=== PATIENT | female | born 1980 | race Caucasian/White ===

== ENCOUNTER 2016-06-06 05:01 | Inpatient (IN) | payer OTHER ==
--- NOTE | 2016-06-04 11:42 | HP ---
Dayana Landrum : 1980 DATE OF SURGERY: 06/06/2016 PREOPERATIVE DIAGNOSES: 1. Previous section. 2. at term. 3. Undesired future fertility. PLANNED PROCEDURE: Repeat section and bilateral tubal ligation. HISTORY OF PRESENT ILLNESS: Dayana Landrum is a 35-year-old 2, para 1-0-0-1 who has been followed in our practice since approximately 8 weeks gestation. She had an ultrasound in November which predicted an estimated date of confinement of 06/13/2016. She was at approximately 12 weeks and 5 days estimated gestational age. The patient had another ultrasound at 20 weeks gestation which was consistent with the same estimated date of confinement. She is therefore thought to be at term at 39 weeks gestation on 06/06/2016. She is being admitted for elective repeat section. The patient had a long hard miserable labor at 39 weeks with her first child. The induction was done at this time because of gestational diabetes. The baby apparently never came deep into the pelvis and she never got beyond about 6 cm. She ended up having a section. She is choosing not to attempt a trial of labor. That baby weighed 7 pounds 9 ounces and his name is Hitesh. The patient and her are expecting a baby girl with this . They have decided that this will complete their family and they are choosing not to have any more children. The patient has signed a federal consent form for sterilization on 02/05/2016. She does understand that this is permanent and not reversible. She is choosing to proceed with a tubal ligation at the time of this repeat section. This has been relatively uncomplicated. The patient has shown a regular increase in the fundal height. No significant proteinuria. Normal blood pressures throughout the . She has had a total weight gain of 48 pounds. She did have a one hour glucose challenge test of 143. She was able to do a 3 hour test and only the 2 hour result was slightly elevated at 157. The patient therefore is thought to not have gestational diabetes, but she has been trying to eat much more healthy with this . She is trying to avoid unnecessary carbs and high fat foods. She does understand the benefits of a healthy well balanced diet. It is noted that some of this patient's weight gain recently is related to fluid retention particularly in her lower extremities. This baby is thought to be approximately the same size as her last child. It is in a vertex presentation. Patient has had three ultrasounds, these have shown a posterior placenta with no previa. Growth was described at the 60th percentile on March 13. testing has included the verify test which showed chromosomes 46 XX. No abnormalities were seen on ultrasound. The patient was followed for cervical length because she had a LEEP conization after her last . Unfortunately there was no significant cervical shortening or any concern about labor. The patient has received the flu shot and TDAP during this . She is planning to breast feed. She has no particular concerns or requests with the delivery except that she does not want pedro for closure of her incision. See the record for the rest of the details. 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 She has never had any sexually transmitted infections. She does have the prior history of gestational diabetes, but this was well controlled with diet alone in her last . She has a history of depression when she was in her teenage years. 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 Apparently there was a grandfather who had a similar anomaly. She has had a couple of surgeries on that ear to create a new canal and to improve her hearing. FAMILY HISTORY: Negative otherwise. SOCIAL HISTORY: The patient is in a stable mutually monogamous relationship. Her frequently travels to [facility], [place], but does not have any exposure to malaria or Zika virus. He has had all his routine vaccinations. Neither the patient nor her have traveled in the area that is endemic for Zika virus. REVIEW OF SYSTEMS: The patient is having some mild cramping. The baby seems to be sitting lower in her pelvis. She has not had any vaginal bleeding or discharge. She has had more fluid retention in her lower extremities, but minimal fluid retention in her face or upper extremities. She has however been suffering with classic symptoms of carpal tunnel syndrome for the last couple of months. PHYSICAL EXAMINATION: VITAL SIGNS: Blood pressure 118/64, pulse and respiration are normal, weight 198 pounds. HEENT: Normal except for this malformation of her right ear. NECK: Supple. LUNGS: Clear to auscultation bilaterally. No costovertebral angle tenderness. HEART: Regular rate and rhythm. ABDOMEN: Gravid with an estimated weight of 7-1/2 pounds. Baby is in a cephalic lie with the back to the maternal left and anterior. Patient's prior scar is barely visible. heart tones were normal in the 130's. Baby is active. PELVIC: No pelvic exam was performed. EXTREMITIES: Normal except for the peripheral edema. IMPRESSION: Dayana Banda is a healthy 35-year-old having her second child. She is choosing to deliver by repeat section. She is requesting bilateral tubal ligation at the same time. She will be admitted on the morning of 06/06/2016 for this surgery. JOB: [id number]
[2016-06-06] MEDS ORDERED: IV START KIT ONE (05:21)
[2016-06-06] MEDS ORDERED: LACTATED RINGERS 1,000 ML ONE (05:21)
[2016-06-06] MEDS ORDERED: SODIUM CHLORIDE 0.9% FLUSH 10 ML ONE (05:22)
[2016-06-06] MEDS ORDERED: CEFAZOLIN SODIUM 2 GRAM DUPLEX 2 G in Premix (D5W) 50 ml 1 EACH IV PRN (05:23)
[2016-06-06] MEDS ORDERED: LACTATED RINGERS 1,000 ML IV SCH (05:23)
[2016-06-06 06:05] VITALS: BMI 31.8
[2016-06-06 06:08] LABS: HEMATOCRIT 34.8 % (37.0-47.0); HEMOGLOBIN 11.9 gm/l (12.0-16.0); MEAN CELL VOLUME 91.6 fl (81.0-99.0); MEAN CORPUSCULAR HEMOGLOBIN 31.3 pg (27.0-31.0); MEAN CORPUSCULAR HGB CONC 34.2 g/dl (33.0-37.0); RED CELL DISTRIBUTION WIDTH 12.8 % (11.5-14.5)
[2016-06-06] MEDS ORDERED: CEFAZOLIN SODIUM 2 GRAM DUPLEX 50 ML IV ONE (07:06)
[2016-06-06] MEDS ORDERED: MORPHINE SULFATE (DURAMORPH) 1 MG/ML 10ML AMP ONE (07:20)
[2016-06-06] MEDS ORDERED: ONDANSETRON 4 MG/2ML 2 ML VIAL ONE (07:49)
[2016-06-06] MEDS ORDERED: EPHEDRINE SULFATE 50 MG/ML 1ML VIAL ONE (07:49)
[2016-06-06] MEDS ORDERED: SPINAL PROCEDURAL TRAY 1 EACH ONE (07:49)
[2016-06-06] MEDS ORDERED: BUPIVACAINE 0.75% SPINAL AMPUL 2 ML ONE (07:49)
[2016-06-06] MEDS ORDERED: MORPHINE SULFATE 4 MG/ML SYRINGE IV PRN ×2 (08:00)
[2016-06-06] MEDS ORDERED: ONDANSETRON 4 MG/2ML 2 ML VIAL IV PRN ×3 (08:00→09:17)
[2016-06-06] MEDS ORDERED: PROMETHAZINE HCL 12.5 MG in SODIUM CHLORIDE 0.9% 50 ML IV PRN ×4 (08:00)
[2016-06-06] MEDS ORDERED: MORPHINE SULFATE 10 MG/ML SYRINGE IV PRN ×2 (08:00)
[2016-06-06] MEDS ORDERED: NALOXONE HCL 0.4 MG/ML VIAL IV PRN ×2 (08:00)
[2016-06-06] MEDS ORDERED: DIPHENHYDRAMINE HCL 50 MG/1 ML VIAL IV PRN ×3 (08:00→09:17)
[2016-06-06] MEDS ORDERED: PROMETHAZINE HCL 25 MG/ML VIAL IM PRN ×2 (08:00)
[2016-06-06] MEDS ORDERED: HYDROMORPHONE HCL 2 MG/ML SYRINGE IV PRN ×2 (08:00)
[2016-06-06] MEDS ORDERED: EPHEDRINE SULFATE 50 MG/ML 1ML VIAL IV PRN ×2 (08:00)
[2016-06-06] MEDS ORDERED: HYDROMORPHONE HCL 1 MG/ML SYRINGE IV PRN ×2 (08:00)
[2016-06-06] MEDS ORDERED: NALBUPHINE HCL 20 MG/ML AMP IV PRN ×2 (08:00)
[2016-06-06] MEDS ORDERED: FAMOTIDINE 10 MG/ML 2ML VIAL ONE (08:28)
[2016-06-06] MEDS ORDERED: METOCLOPRAMIDE HCL 5 MG/ML 2ML VIAL ONE (08:28)
[2016-06-06] MEDS ORDERED: OXYTOCIN 10 UNITS/ML VIAL ONE (08:32)
[2016-06-06] MEDS ORDERED: KETOROLAC TROMETHAMINE 30 MG/ML 1 ML VIAL ONE (08:35)
--- NOTE | 2016-06-06 09:15 | PCMBPN ---
Brief Post Op Note: Date of Procedure: 06/06/16 Start Time: 0754 Preoperative Diagnosis: 1. Previous c/section 2. at term 3. Undesired fertility. Postoperative Diagnosis: 1. Same Procedure: RCS and BTL Surgeon: Christina Holt Assist:Mariah Bahena Anesthesia: Spinal by Summer Hillman CRNA Findings: well healed, no adhesions Baby girl born at 0804, Apgars 9/9, weight 8lbs 6oz, large round head and chubby cheeks. Anterior fundal placenta. Normal tubes and ovaries Huge adnexal vessels. Condition: good Complications: none IV Fluids: approx 1700 mLs of LR Urine Output: 100 mLs Estimated Blood Loss: 1000 mLs Tourniquet Time: N/A Specimens: N/A Implants: N/A Drains:
[2016-06-06] MEDS ORDERED: MEASLES,MUMPS&RUBELLA VACCINE 0.5 ML VIAL SUB-Q V ONE (09:17)
[2016-06-06] MEDS ORDERED: DIPHENHYDRAMINE HCL 25 MG CAPSULE PO PRN (09:17)
[2016-06-06] MEDS ORDERED: DIPHTH,PERTUSS(ACELL),TET VAC 0.5 ML VIAL IM V ONE (09:17)
[2016-06-06] MEDS ORDERED: KETOROLAC TROMETHAMINE 30 MG/ML 1 ML VIAL IV PRN (09:17)
[2016-06-06] MEDS ORDERED: LANOLIN 50 APPLIC/7G TUBE TP PRN (09:17)
[2016-06-06] MEDS ORDERED: OXYCODONE HCL 5 MG TABLET PO PRN (09:17)
[2016-06-06] MEDS ORDERED: MORPHINE SULFATE 2 MG/ML SYRINGE IV PRN ×2 (09:34→09:55)
[2016-06-06] MEDS: LACTATED RINGERS 1,000 ML IV SCH ×2 (10:09→18:28)
--- NOTE | 2016-06-06 12:14 | OP ---
Dayana Landrum : 1980 DATE OF SURGERY: 06/06/2016 PREOPERATIVE DIAGNOSES: 1. Previous section. 2. at term. 3. Undesired fertility. POSTOPERATIVE DIAGNOSES: 1. Previous section. 2. at term. 3. Undesired fertility. PROCEDURE PERFORMNED: Repeat section and bilateral tubal ligation. SURGEON: Dr. Christina Holt. TOW MOTOR MECHANIC: Holley Whitlock CNM. INSPECTOR MACHINE CUT GLASS: Summer Hillman CRNA. ANESTHESIA: Spinal. ESTIMATED BLOOD LOSS: 1000 mL. FINDINGS: Dayana had well healed suprapubic transverse incision. She had no significant intraperitoneal adhesions. Lower uterine segment was intact. She had a baby girl born at 0804 hours on 06/06/2016. This baby weighed 8 pounds 6 ounces and had scores of 9 at one minute and 9 at five minutes. The placenta was anterior and fundal with no abnormalities. Normal Fallopian tubes and ovaries. PROCEDURE: On the morning of 06/06/2016 after the usual preoperative preparations were completed in the patient's LDR room, Dayana was brought to the operating room and placed on the operating room table in a sitting position. The usual monitoring leads were placed. Spinal anesthesia was then administered without difficulty. The patient was then placed in a supine position with a wedge under the right hip. She was made as comfortable as possible and the spinal anesthesia was allowed to take effect. No clipper prep was necessary. A Moise catheter was placed without difficulty. The abdomen was then prepped and draped for a transverse suprapubic incision. A timeout was performed verifying proper patient, procedure, position, personnel, and equipment. Adequate anesthesia was verified. The baby's father was then invited into the room and the surgery was begun at 0754. A transverse incision was made above the symphysis pubis right over this patient's prior incision which was barely visible. The incision was carried down through the adipose layer with sharp and blunt dissection and using cautery for hemostasis. The fascia was opened in the midline and then this incision was extended laterally with the Angela scissors. The fascia was then mobilized superiorly and inferiorly with sharp and blunt dissection. The muscles were in the midline. The peritoneum was identified and opened vertically. There was a small amount of free fluid in the peritoneal cavity. The visceral peritoneum was opened transversely and the bladder was mobilized inferiorly. A transverse incision was then made in the lower uterine segment with a scalpel. This was carried down carefully through the myometrium until the membranes were exposed. The membranes were then ruptured yielding a large amount of clear fluid. The incision was extended a little bit by gentle traction in a cephalocaudad direction. The baby's head was immediately below the incision and was gently delivered through the incision. This was a bit challenging because the baby had such a large round head. Eventually, it was decided to place the vacuum on the vertex and then the head was gently eased through the incision. The baby's shoulders were then delivered followed by the rest of this cute chunky baby with chubby cheeks. This was a vigorous baby girl who had excellent tone and cry. The cord was allowed to pulsate for nearly a minute then it was clamped and cut and the baby was handed to the waiting pediatric nurse for evaluation. During this time also the baby was shown to her mom and her dad over the drape. Cord blood was obtained. Placenta was then delivered. It was noted to be quite large and extending across the anterior fundal portion of the uterus. All blood clots and debris were removed. The uterus was then exteriorized and it was noted to be rather boggy. The patient was given IV Pitocin and a uterine massage was performed during this time. The uterine incision was closed with a continuous interlocking suture of 1 Chromic. Once the incision was closed the uterine tone improved considerably. Total estimated blood loss up to this point, however, was approximately 1000 mL. A second layer of 1 Chromic was used to imbricate the first suture line and this gave excellent hemostasis. Inspection of the adnexa showed normal healthy Fallopian tube. The adnexal vessels were huge and were decompressed a little bit before doing the tubal ligation. I also spoke directly with Dayana and her about their wishes. They again confirmed that they did not want any more children and wanted us to proceed with the tubal ligation. The right Fallopian tube was visualized in its entire length. The isthmic portion was selected and grasped with a Swanton clamp. The mesentery was open with cautery. Two Abi clamps were placed and this portion of the Fallopian excised with Metzenbaum scissors. Double ties were placed on either cut end and the lumen was cauterized and hemostasis was verified. The exact same procedure was then done on the left Fallopian tube. Both segments of Fallopian tube were sent to pathology for examination. The uterus was carefully placed back within the peritoneal cavity. The patient did have an Ab retractor that had been placed initially on opening the peritoneum. The pelvis and abdomen were well irrigated with warm saline. All blood clots and debris were removed from the posterior and anterior cul-de-sac and from the paracolic gutters. Hemostasis was again verified. Lap, sponge, and instrument counts were reported as correct. The abdomen was closed in layers as follows: peritoneum and muscle were reapproximated in the midline with some 2-0 Vicryl, the fascia was closed with 0 PDS, the adipose layer was closed with some 2-0 Plain suture, and then the skin was reapproximated with 4-0 Monocryl. Patient was cleaned up and Steri-Strips were placed all by bandage. The drapes were then removed and patient was further cleaned up. She was eventually transferred to her bed and taken to her postoperative recovery room in stable condition. JOB: [id number]
[2016-06-06] MEDS ORDERED: KETOROLAC TROMETHAMINE 30 MG/ML 1 ML VIAL IV SCH (16:30)
[2016-06-06] MEDS: DOCUSATE SODIUM 100 MG CAPSULE PO SCH (22:09)
[2016-06-06] MEDS: OXYCODONE/ACETAMINOPHEN 5/325 MG TABLET PO PRN (22:09)
[2016-06-07] MEDS: IBUPROFEN 800 MG TABLET PO PRN ×3 (01:16→17:55)
[2016-06-07] MEDS: LACTATED RINGERS 1,000 ML IV SCH (02:29)
[2016-06-07] MEDS: OXYCODONE/ACETAMINOPHEN 5/325 MG TABLET PO PRN ×4 (02:50→23:29)
[2016-06-07 06:48] LABS: HEMATOCRIT 30.2 % (37.0-47.0); HEMOGLOBIN 9.9 gm/l (12.0-16.0); MEAN CELL VOLUME 95.3 fl (81.0-99.0); MEAN CORPUSCULAR HEMOGLOBIN 31.2 pg (27.0-31.0); MEAN CORPUSCULAR HGB CONC 32.8 g/dl (33.0-37.0); RED CELL DISTRIBUTION WIDTH 13.1 % (11.5-14.5)
[2016-06-07] MEDS ORDERED: PRENATAL VIT/FE FUMARATE/FA 1 TABLET PO SCH (09:00)
[2016-06-07] MEDS ORDERED: FERROUS SULFATE (65 Fe) 325 MG TABLET PO SCH (09:00)
[2016-06-07] MEDS: DOCUSATE SODIUM 100 MG CAPSULE PO SCH ×2 (09:55→20:58)
--- NOTE | 2016-06-07 12:44 | PDOC44 ---
- Subjective Day: 1 (Pt is up and out of bed and caring for both children. ) Pt states pain is less this time; also she is not nearly as depleted because no labor. She got her diaz out as soon as possible, and now wants saline lock out. Bleeding is minimal. Voiding well. Hct is down to 30.2 from 34.8%. Reports Pain Tolerable, Reports , Reports Lochia Light - Objective Temp Pulse Resp BP Pulse Ox 98.7 F 99 16 104/60 98 06/07/16 07:59 06/07/16 07:59 06/07/16 07:59 06/07/16 07:59 06/06/16 14:30 Lab Results 06/07/16 06:30 WBC 7.0 RBC 3.17 L Hgb 9.9 L D Hct 30.2 L Plt Count 135 06/07/16 06:30 MCH 31.2 H MCHC 32.8 L Current Medications Generic Name Dose Route Start Last Admin Trade Name Freq PRN Reason Stop Dose Admin Diphenhydramine HCl 25 - 50 mg 06/06/16 09:17 Benadryl PO Q6H PRN Itching (Mild/Moderate) Diphenhydramine HCl 25 - 50 mg 06/06/16 09:17 Benadryl IV Q6H PRN Itching (Severe) Docusate Sodium 100 mg 06/06/16 21:00 06/07/16 09:55 Colace PO 100 mg BID MARBIN Administration Emollient Ointment 1 applic 06/06/16 09:17 [id number] TP PRN PRN sore nipples Ferrous Sulfate 325 mg 06/07/16 09:00 06/07/16 09:55 Ferrous Sulfate PO 325 mg DAILY MARBIN Administration Promethazine HCl 12.5 mg/ 50.5 mls @ 202 mls/hr 06/06/16 08:00 Sodium Chloride IV Q4H PRN Nausea/Vomiting Ibuprofen 800 mg 06/06/16 09:17 06/07/16 09:55 Motrin PO 800 mg Q8H PRN Administration Pain Multivi/Iron Carb/Fe Sulf/FA/Prenat 1 tab 06/07/16 09:00 06/07/16 09:55 Plus PO 1 tab DAILY MARBIN Administration Ondansetron HCl 4 mg 06/06/16 09:17 06/06/16 15:22 Zofran IV 4 mg Q6H PRN Administration Nausea/Vomiting Oxycodone HCl 5 - 10 mg 06/06/16 09:17 Roxicodone PO Q3H PRN Pain (Severe) Oxycodone/Acetaminophen 1 - 2 tab 06/06/16 09:17 06/07/16 09:55 Percocet 5/325 PO 2 tab Q4H PRN Administration Pain (Moderate) Sodium Chloride 10 ml 06/06/16 09:17 Normal Saline 10ml Flush IV PRN PRN IV Flush Sodium Chloride 10 ml 06/06/16 17:00 06/07/16 09:55 Normal Saline 10ml Flush IV 10 ml Q8HR MARBIN Administration - Physical Exam General: Afebrile Psych/Mental Status: Mood/Affect Appropriate, Bonding Well Neurological: Alert, Normal Gait, Normal Speech Lungs: Clear to Auscultation Bilaterally Cardiovascular: Regular Rate and Rhythm Fundus: Firm Abdomen: Normal Bowel Sounds Skin: Normal Color, Warm, Dry Wound FUR COMBER: Dressing Clean/Dry/Intact - Problems:Assessment/Plan (1) delivery, delivered, current hospitalization Status: Acute Assessment/Plan: Uncomplicated surgery; pt is now recovering well. (2) Sterilization Status: Acute Assessment/Plan: Tubal ligation done at time of C/section. Disposition: Stable, Anticipate DC Home Tomorrow
[2016-06-08] MEDS: IBUPROFEN 800 MG TABLET PO PRN (02:06)
[2016-06-08] MEDS: OXYCODONE/ACETAMINOPHEN 5/325 MG TABLET PO PRN (05:45)
--- NOTE | 2016-06-08 07:27 | PDOC39B ---
Hospital Course: ADMIT DATE: 06/06/16 DISCHARGE DATE: 06/08/16 ADMISSION DIAGNOSES: Previous c/section at term PROCEDURES: RCS and BTL HISTORY OF PRESENT ILLNESS: 35 year old G2 T1 L1 at 39 weeks 0 days presenting for elective repeat c/section. HOSPITAL COURSE: The patient had an uncomplicated surgery with delivery of a baby girl on 06/06/16. Mother and baby have done very well in the period. By day of discharge the patient is ambulating, eating, voiding, and passing flatus without difficulty. Pain is controlled and lochia is appropriate. She is . - Physical Exam Vital Signs: Temp Pulse Resp BP Pulse Ox 98.5 F 86 16 115/67 98 06/08/16 02:00 06/08/16 02:00 06/08/16 02:00 06/08/16 02:00 06/06/16 14:30 General: Afebrile Psych/Mental Status: Mood/Affect Appropriate, Bonding Well Neurological: Alert, Oriented x 4 HEENT: Atraumatic Lungs: Clear to Auscultation Bilaterally Cardiovascular: Regular Rate and Rhythm Fundus: Firm, Below Umbilicus Abdomen: Normal Bowel Sounds Lochia: Light Skin: Normal Color, Warm, Dry Wound: Well Approximated - Discharge Diagnosis (1) delivery, delivered, current hospitalization Status: Acute Assessment/Plan: Uncomplicated surgery; pt is now recovering well. (2) Sterilization Status: Acute Assessment/Plan: Tubal ligation done at time of C/section. - Discharge Plan Condition: Good Disposition: Home Prescriptions: Docusate Sodium [COLACE 100 MG CAPSULE (SHF)] 100 mg PO BID #60 capsule Ibuprofen [IBUPROFEN 800 MG TABLET (SHF)] 800 mg PO Q8H PRN #100 tablet PRN Reason: Pain Oxycodone HCl/Acetaminophen [PERCOCET 5/325 MG TABLET (SHF)] 1 - 2 tab PO Q4H PRN #30 tablet PRN Reason: Pain (Moderate) Follow-Up: Christina Holt MD [Primary Care Provider] - In 2 weeks
[2016-06-08 07:54] VITALS: BP 128/69
--- NOTE | 2016-06-10 15:22 | SURGPATH ---
[facility] [address] [place] [id number] Patient Name: CAPRICE GRANADO MR#: [id number] : 1980 Gender: F Specimen #: [id number] Collected: 06/06/2016 Received: 06/09/2016 Reported: 06/10/2016 Submitting Phys: ABEL GARLAND Copy To Phys: RICARDO KELLER [facility] Clinical History / Pre-Operative Diagnosis: NONE PROVIDED Specimen Source / Surgical Procedure Performed: SEGMENT OF FALLOPIAN TUBE, RIGHT AND LEFT (STITCH ON RIGHT)-REPEAT , BILATERAL TUBAL LIGATION Interpretation: FALLOPIAN TUBES, RIGHT AND LEFT, TUBAL LIGATION: - COMPLETE CROSS SECTIONS OF RIGHT AND LEFT FALLOPIAN TUBES Electronically Signed Out Miriam Cosby M.D. Gross Description: The specimen is received in a formalin filled container labeled with the patient's name and "right and left fallopian tubes". Two cylindrical segments of christiansen tissue are each 0.5 x 0.5 cm. One segment has an attached suture and is inked black. A videotape sales representative cross-section of each is submitted in one cassette. Ronny Diana PThomas Microscopic Description: Complete cross-sections of inked and uninked fallopian tubes are seen, without significant pathologic changes. 1: [id number] Z30.2
== END 2016-06-08 08:40 | disposition home or self-care (01) | DRG 766 ==
LOC: FBC 05:01
PROVIDERS: ADMIT Obstetrics & Gynecology; ATTEND Obstetrics & Gynecology
PROC: 10D00Z1 Extraction of Products of Conception, Low, Open Approach (ICD-10-PCS; principal; 2016-06-06)
PROC: 0UB70ZZ Excision of Bilateral Fallopian Tubes, Open Approach (ICD-10-PCS; 2016-06-06)
DX: O34.219 Maternal care for unspecified type scar from previous cesarean delivery (principal); N85.8 Other specified noninflammatory disorders of uterus; Z30.2 Encounter for sterilization; Z3A.39 39 weeks gestation of pregnancy; Z37.0 Single live birth